=== PATIENT | male | born 1990 | race African-American/Black ===

== ENCOUNTER 2024-03-12 08:48 | Emergency (ER) | payer MEDICAID, OTHER ==
[~2024-03-12] VITALS: Ht 177.8 cm; Wt 65.0 kg
[2024-03-12 09:05] VITALS: O2SAT 100
[2024-03-12] MEDS ORDERED: AMOX1TAB16 MT (09:49)
[2024-03-12] MEDS ORDERED: METH-653 MT (09:49)
[2024-03-12 10:08] VITALS: BP 115/95; PULSE 84; RESP 17; TEMP 36.66960; O2SAT 100
[2024-03-12] MEDS: TETANUS, DIPHTHERIA, PERTUSSIS VAC/PF 0.5ML (>10YR OLD) IM ONE (10:10)
== END 2024-03-12 10:26 | disposition home or self-care (01) ==
LOC: ER 08:48
DX: S00.81XA Abrasion of other part of head, initial encounter (principal); W54.0XXA Bitten by dog, initial encounter; Y93.89 Activity, other specified; Y92.89 Other specified places as the place of occurrence of the external cause; Y99.8 Other external cause status
CPT/HCPCS: 90471; 90715; 99283